=== PATIENT | female | born 1995 | race African-American/Black ===

== ENCOUNTER 2016-09-01 22:49 | Emergency (ER) | payer OTHER ==
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
[~2016-09-01 22:49] MED LIST: BENZONATATE PO; FLAGYL PO; FLEXERIL10 MG PO; IBUPROFEN800 MG PO; NO MEDICATIONS; PHENERGAN25 M1 PO; PRILOSEC20 MG PO; VOLTAREN75 MG PO
[2016-09-02 00:14] LABS: BASOPHIL% 0.9 % (0-2.5); EOSINOPHIL# 0.3 X10e3 (0-0.7); EOSINOPHIL% 6.1 % (0.0-7.0); HEMATOCRIT 39.4 % (35.0-45.0); LYMPHOCYTE# 1.7 X10e3 (1.0-3.5); LYMPHOCYTE% 31.1 % (17.0-45.0); MEAN CELL VOLUME 81.1 FL (83-96); MEAN CORPUSCULAR HEMOGLOBIN 26.7 PG (28-34); MEAN CORPUSCULAR HGB CONC 32.9 g/dL (30-36); MEAN PLATELET VOLUME 9.5 FL (6.5-11.5); MONOCYTE# 0.5 X10e3 (0-1.0); MONOCYTE% 9.2 % (3.0-12.0); NEUTROPHIL# 2.9 X10e3 (1.5-7.1); NEUTROPHIL% 52.7 % (40-75); PLATELET COUNT 147 X10e3 (140-420); RED BLOOD COUNT 4.86 X10e (3.90-5.30); RED CELL DISTRIBUTION WIDTH 15.9 % (11.0-15.5); WHITE BLOOD COUNT 5.5 X10e3 (4.0-10.5)
[2016-09-02 00:18] LABS: DIFF IND NO
[2016-09-02 00:52] LABS: BUN/CREATININE RATIO 16.25; CALCIUM SERUM 8.8 mg/dL (8.4-10.2); CREATININE SERUM 0.8 mg/dL (0.6-1.4); GLOM FILT RATE Estimated 120.5 mL/min (>60); POTASSIUM 3.1 mmol/L (3.5-5.1)
[2016-09-02 00:54] LABS: URINE SOURCE CLEAN CATCH
[2016-09-02 00:59] LABS: URINE APPEARANCE CLEAR; URINE BLOOD NEG (NEG); URINE COLOR DK YELLOW; URINE GLUCOSE NEG (NEG); URINE KETONE TRACE (NEG); URINE LEUKOCYTE ESTERASE TRACE (NEG); URINE NITRATE NEG (NEG); URINE PH 5.5 (5-8); URINE PROTEIN NEG (NEG); URINE SPECIFIC GRAVITY 1.035 (1.003-1.035)
[2016-09-02 01:05] LABS: CULTURE INDICATED? YES; URBCS1 AUWI 0-2 /[HPF] (0-2); URINE BACTERIA AUWI NEG (NEGATIVE); URINE SQUAMOUS EPITHELIAL CELL OCC /[HPF]
[2016-09-02 01:08] LABS: URINE BILIRUBIN NEG (NEG)
== END 2016-09-02 03:21 | disposition home or self-care (01) ==
LOC: CED 22:49
PROVIDERS: Emergency Medicine
DX: M16.11 Unilateral primary osteoarthritis, right hip (principal); Z88.5 Allergy status to narcotic agent
CPT/HCPCS: 36415; 73502; 80048; 81003; 82550; 84703; 85025; 86140; 87086; 96372; 99283; J1885

== ENCOUNTER 2016-11-26 23:28 | Emergency (ER) | payer OTHER ==
[~2016-11-26] VITALS: Ht 165.1 cm; Wt 91.2 kg
[2016-11-27 00:27] LABS: URINE SOURCE CLEAN CATCH
[2016-11-27 00:37] LABS: CULTURE INDICATED? YES; URBCS1 AUWI 0-2 /[HPF] (0-2); URINE APPEARANCE CLEAR; URINE BACTERIA AUWI NEG (NEGATIVE); URINE BILIRUBIN NEG (NEG); URINE BLOOD NEG (NEG); URINE COLOR YELLOW; URINE GLUCOSE NEG (NEG); URINE KETONE NEG (NEG); URINE LEUKOCYTE ESTERASE TRACE (NEG); URINE NITRATE NEG (NEG); URINE PROTEIN NEG (NEG); URINE SPECIFIC GRAVITY 1.026 (1.003-1.035); URINE SQUAMOUS EPITHELIAL CELL NONE SEEN /[HPF]
[2016-11-30 16:47] LABS: CHLAMYDIA TRACH Not Detected (Not Detected); N GONOR Not Detected (Not Detected)
== END 2016-11-27 02:57 | disposition home or self-care (01) ==
LOC: CED 23:28
PROVIDERS: Emergency Medicine
DX: N72 Inflammatory disease of cervix uteri (principal); J02.9 Acute pharyngitis, unspecified; Z88.8 Allergy status to other drugs, medicaments and biological substances; F17.200 Nicotine dependence, unspecified, uncomplicated
CPT/HCPCS: 81003; 84703; 87086; 87491; 87591; 87651; 87808; 87905; 96372; 99283; J0696